=== PATIENT | female | born 1975 | race Caucasian/White ===

== ENCOUNTER 2023-08-19 05:24 | Inpatient (IN) ==
[2023-08-19] MEDS ORDERED: IOPAMIDOL 100 ML BOTTLE IV ONE (05:25)
[2023-08-19] MEDS: 0.9 % SODIUM CHLORIDE 1,000 ML IV ONE ×2 (06:00→08:42)
[2023-08-19] MEDS: ONDANSETRON 4 MG/2 ML VIAL IV ONE ×2 (06:00→07:34)
[2023-08-19] MEDS: KETOROLAC 15 MG/ML VIAL IV ONE (06:00)
[2023-08-19 06:12] LABS: Basophils # (Auto) 0.01 K/mcL (0.00-0.30); Basophils % (Auto) 0.3 % (0.0-2.0); Eosinophils # (Auto) 0.03 K/mcL (0.00-0.70); Eosinophils % (Auto) 0.8 % (0.0-7.0); Hematocrit 42.9 % (34.1-44.9); Hemoglobin 14.2 g/dL (11.2-15.7); Lymphocytes # (Auto) 0.54 K/mcL (1.50-4.80); Lymphocytes % (Auto) 14.7 % (15.5-49.0); Mean Cell Volume 93.1 fL (80.0-100.0); Mean Corpuscular HGB Conc 33.1 g/dL (31.0-36.0); Mean Platelet Volume 9.9 fL (8.8-12.5); Monocytes # (Auto) 0.02 K/mcL (0.10-0.90); Monocytes % (Auto) 0.5 % (1.0-12.0); Neutrophils % (Auto) 83.7 % (38.0-78.0); Platelet Count 298 K/mcL (140-440); RBC 4.61 M/mcL (3.59-5.38); Red Cell Distribution Width 13.5 % (11.5-14.5); WBC 3.7 K/mcL (4.5-11.0)
[2023-08-19 06:18] LABS: HCG,Serum Negative
[2023-08-19 06:36] LABS: ALT/SGPT 11 U/L (<40); AST/SGOT 20 U/L (<32); Albumin 4.2 gm/dL (3.2-5.2); Albumin/Globulin Ratio 1.7 (1.0-2.3); Alkaline Phosphatase 66 U/L (39-117); Bilirubin,Total 0.8 mg/dL (0.1-1.0); Blood Urea Nitrogen 21 mg/dL (6-20); Calcium 9.1 mg/dL (8.6-10.4); Carbon Dioxide 23 mmol/L (22-30); Chloride 104 mmol/L (96-108); Globulin 2.5 gm/dL (2.2-3.7); Glomerular Filtration Rate 77; Glucose 69 mg/dL (70-105)
[2023-08-19 07:37] LABS: Appearance,Urine Cloudy (Clear); Bacteria,Urine Many /hpf (0); Bilirubin,Urine Negative (Negative); Color,Urine Yellow; Culture Indicated,Urine No; Glucose,Urine (UA) Negative (Negative); Ketones,Urine Trace mg/dL (Negative); Leukocyte Esterase,Urine Large /uL (Negative); Mucus,Urine Few /hpf; Nitrate,Urine Positive (Negative); Protein,Urine 100 mg/dL (Negative); Urine Blood Large ery/mcL (Negative); Urine RBC > 182 /hpf (0-1); Urine Squamous Epithelial Cell 8 /hpf (0-4); Urine WBC > 182 /hpf (0-4); Urobilinogen,Urine Normal
[2023-08-19] MEDS: CEFDINIR 300 MG CAPSULE PO ONE (08:40)
[2023-08-19] MEDS: cefTRIAXone 2 GM in DEXTROSE 5% IN WATER 50 ML IV ONE (08:47)
[2023-08-19] MEDS: VANCOMYCIN PER PHARMACY IV ONE (09:46)
[2023-08-19] MEDS: 0.9 % SODIUM CHLORIDE 500 ML IV ONE (09:55)
[2023-08-19] MEDS: VANCOMYCIN 1,000 MG in 0.9 % SODIUM CHLORIDE 250 ML IV SCH ×2 (09:55→22:19)
[2023-08-19] MEDS: NOREPINEPHRINE BITARTRATE 8 MG in 0.9 % SODIUM CHLORIDE 242 ML IV SCH (10:50)
[2023-08-19] MEDS: fentaNYL 100 MCG/2 ML VIAL IV ONE (11:00)
[2023-08-19] MEDS: 0.9 % SODIUM CHLORIDE 250 ML IV SCH ×2 (11:42→19:56)
[2023-08-19] MEDS: LORazepam 2 MG/ML VIAL IV ONE (12:40)
[2023-08-19] MEDS: predniSONE 10 MG TABLET PO ONE (14:32)
[2023-08-19 15:07] LABS: C-Reactive Protein 2.42 mg/dL (0.03-0.80)
[2023-08-19] MEDS: LACTATED RINGERS 1,000 ML IV ONE (15:42)
[2023-08-19] MEDS: CEFEPIME 2 GM VIAL IV ONE (15:42)
[2023-08-19] MEDS: CEFEPIME 2 GM VIAL IV SCH (15:43)
[2023-08-19] MEDS ORDERED: VANCOMYCIN PER PHARMACY IV SCH (15:51)
[2023-08-19] MEDS: predniSONE 20 MG TABLET PO SCH (16:02)
[2023-08-19] MEDS: ACETAMINOPHEN 1,000 MG/100 ML BAG IV ONE (16:03)
[2023-08-19] MEDS: HYDROcodone/APAP 10/325MG TABLET PO ONE (16:03)
[2023-08-19] MEDS: HYDROcodone/APAP 5/325MG TABLET PO ONE (16:03)
[2023-08-19 16:22] LABS: Blood Urea Nitrogen 19 mg/dL (6-20); Calcium 7.5 mg/dL (8.6-10.4); Carbon Dioxide 21 mmol/L (22-30); Chloride 109 mmol/L (96-108); Glomerular Filtration Rate 67; Glucose 70 mg/dL (70-105)
[2023-08-19] MEDS ORDERED: ONDANSETRON 4 MG/2 ML VIAL IV PRN (16:43)
[2023-08-19] MEDS: LACTATED RINGERS 1,000 ML IV SCH (17:23)
[2023-08-19] MEDS: OSELTAMIVIR PHOSPHATE 75 MG CAPSULE PO SCH (20:43)
[2023-08-19] MEDS: HYDROcodone/APAP 10/325MG TABLET PO PRN (20:43)
[2023-08-19] MEDS: FAMOTIDINE 20 MG TABLET PO SCH (20:43)
[2023-08-19] MEDS: 0.9 % SODIUM CHLORIDE 10 ML SYRINGE IV SCH (20:45)
[2023-08-19] MEDS: DOCUSATE SODIUM 100 MG CAPSULE PO SCH (22:19)
[2023-08-20 05:55] LABS: Basophils # (Auto) 0 K/mcL (0.00-0.30); Basophils % (Auto) 0 % (0.0-2.0); Eosinophils # (Auto) 0 K/mcL (0.00-0.70); Eosinophils % (Auto) 0 % (0.0-7.0); Hemoglobin 11.9 g/dL (11.2-15.7); Lymphocytes # (Auto) 0.32 K/mcL (1.50-4.80); Lymphocytes % (Auto) 1.4 % (15.5-49.0); Mean Corpuscular HGB Conc 33.1 g/dL (31.0-36.0); Mean Platelet Volume 9.7 fL (8.8-12.5); Monocytes # (Auto) 0.46 K/mcL (0.10-0.90); Neutrophils % (Auto) 95.1 % (38.0-78.0); Platelet Count 224 K/mcL (140-440); RBC 3.79 M/mcL (3.59-5.38); Red Cell Distribution Width 14.3 % (11.5-14.5)
[2023-08-20 06:18] LABS: ALT/SGPT 17 U/L (<40); AST/SGOT 28 U/L (<32); Albumin 2.7 gm/dL (3.2-5.2); Albumin/Globulin Ratio 1.4 (1.0-2.3); Alkaline Phosphatase 48 U/L (39-117); Bilirubin,Total 0.2 mg/dL (0.1-1.0); Blood Urea Nitrogen 13 mg/dL (6-20); Calcium 7.9 mg/dL (8.6-10.4); Carbon Dioxide 24 mmol/L (22-30); Chloride 110 mmol/L (96-108); Glomerular Filtration Rate 88; Glucose 95 mg/dL (70-105)
[2023-08-20] MEDS ORDERED: predniSONE 20 MG TABLET PO SCH (08:00)
[2023-08-20 08:13] LABS: WBC 22.9 K/mcL (4.5-11.0)
[2023-08-20] MEDS: predniSONE 20 MG TABLET PO SCH (08:34)
[2023-08-20] MEDS: ENOXAPARIN 40 MG/0.4 ML SYRINGE SQ SCH (08:35)
[2023-08-20] MEDS: DOXYCYCLINE 100 MG in DEXTROSE 5% IN WATER 100 ML IV SCH (16:12)
[2023-08-20] MEDS: NAPROXEN 250 MG TABLET PO PRN (18:31)
[2023-08-21 06:18] LABS: ALT/SGPT 21 U/L (<40); AST/SGOT 27 U/L (<32); Albumin 2.5 gm/dL (3.2-5.2); Albumin/Globulin Ratio 1.1 (1.0-2.3); Alkaline Phosphatase 59 U/L (39-117); Bilirubin,Total < 0.2 mg/dL (0.1-1.0); Blood Urea Nitrogen 16 mg/dL (6-20); Calcium 8.3 mg/dL (8.6-10.4); Carbon Dioxide 25 mmol/L (22-30); Chloride 111 mmol/L (96-108); Globulin 2.2 gm/dL (2.2-3.7); Glomerular Filtration Rate 88; Glucose 106 mg/dL (70-105)
[2023-08-21] MEDS: predniSONE 20 MG TABLET PO SCH (08:18)
[2023-08-21 08:57] LABS: Basophils # (Auto) 0.05 K/mcL (0.00-0.30); Basophils % (Auto) 0.3 % (0.0-2.0); Eosinophils # (Auto) 0.15 K/mcL (0.00-0.70); Eosinophils % (Auto) 0.8 % (0.0-7.0); Hematocrit 34.5 % (34.1-44.9); Hemoglobin 11.2 g/dL (11.2-15.7); Lymphocytes # (Auto) 0.93 K/mcL (1.50-4.80); Lymphocytes % (Auto) 4.9 % (15.5-49.0); Mean Corpuscular HGB Conc 32.5 g/dL (31.0-36.0); Mean Platelet Volume 11.1 fL (8.8-12.5); Monocytes # (Auto) 0.76 K/mcL (0.10-0.90); Neutrophils % (Auto) 87.2 % (38.0-78.0); Platelet Count 168 K/mcL (140-440); RBC 3.63 M/mcL (3.59-5.38); Red Cell Distribution Width 14.7 % (11.5-14.5)
[2023-08-21 09:23] LABS: WBC 19.1 K/mcL (4.5-11.0)
[2023-08-21] MEDS ORDERED: NOREPINEPHRINE BITARTRATE 8 MG in 0.9 % SODIUM CHLORIDE 242 ML IV PRN (09:57)
[2023-08-21] MEDS: ACETAMINOPHEN 325 MG TABLET PO PRN (10:14)
[2023-08-21] MEDS: LOSARTAN 25 MG TABLET PO ONE (22:05)
[2023-08-22 06:33] LABS: Basophils # (Auto) 0.01 K/mcL (0.00-0.30); Basophils % (Auto) 0.1 % (0.0-2.0); Eosinophils # (Auto) 0.05 K/mcL (0.00-0.70); Eosinophils % (Auto) 0.4 % (0.0-7.0); Hematocrit 35.7 % (34.1-44.9); Hemoglobin 11.7 g/dL (11.2-15.7); Lymphocytes % (Auto) 5.7 % (15.5-49.0); Mean Cell Volume 95.7 fL (80.0-100.0); Mean Corpuscular HGB Conc 32.8 g/dL (31.0-36.0); Mean Platelet Volume 11.7 fL (8.8-12.5); Monocytes # (Auto) 0.64 K/mcL (0.10-0.90); Monocytes % (Auto) 4.5 % (1.0-12.0); Neutrophils % (Auto) 88.1 % (38.0-78.0); Platelet Count 173 K/mcL (140-440); RBC 3.73 M/mcL (3.59-5.38); Red Cell Distribution Width 14.3 % (11.5-14.5); WBC 14.1 K/mcL (4.5-11.0)
[2023-08-22 06:58] LABS: ALT/SGPT 40 U/L (<40); AST/SGOT 34 U/L (<32); Albumin 2.9 gm/dL (3.2-5.2); Albumin/Globulin Ratio 1.2 (1.0-2.3); Alkaline Phosphatase 83 U/L (39-117); Bilirubin,Total < 0.2 mg/dL (0.1-1.0); Blood Urea Nitrogen 10 mg/dL (6-20); Calcium 9.2 mg/dL (8.6-10.4); Carbon Dioxide 30 mmol/L (22-30); Chloride 105 mmol/L (96-108); Globulin 2.5 gm/dL (2.2-3.7); Glomerular Filtration Rate 109; Glucose 90 mg/dL (70-105)
[2023-08-22] MEDS: POTASSIUM CHLORIDE 20 MEQ TABLET PO ONE (08:17)
[2023-08-22] MEDS: LOSARTAN 25 MG TABLET PO SCH (08:17)
[2023-08-23 06:19] LABS: Basophils # (Auto) 0 K/mcL (0.00-0.30); Basophils % (Auto) 0 % (0.0-2.0); Eosinophils % (Auto) 1.4 % (0.0-7.0); Hematocrit 37.4 % (34.1-44.9); Hemoglobin 12.3 g/dL (11.2-15.7); Lymphocytes # (Auto) 1.13 K/mcL (1.50-4.80); Lymphocytes % (Auto) 15.4 % (15.5-49.0); Mean Cell Volume 94.2 fL (80.0-100.0); Mean Corpuscular HGB Conc 32.9 g/dL (31.0-36.0); Mean Platelet Volume 10.6 fL (8.8-12.5); Monocytes # (Auto) 0.62 K/mcL (0.10-0.90); Monocytes % (Auto) 8.4 % (1.0-12.0); Platelet Count 208 K/mcL (140-440); RBC 3.97 M/mcL (3.59-5.38); WBC 7.4 K/mcL (4.5-11.0)
[2023-08-23 06:38] LABS: ALT/SGPT 24 U/L (<40); AST/SGOT 21 U/L (<32); Albumin 3.2 gm/dL (3.2-5.2); Albumin/Globulin Ratio 1.3 (1.0-2.3); Alkaline Phosphatase 74 U/L (39-117); Bilirubin,Total 0.2 mg/dL (0.1-1.0); Blood Urea Nitrogen 11 mg/dL (6-20); C-Reactive Protein 6.38 mg/dL (0.03-0.80); Carbon Dioxide 31 mmol/L (22-30); Chloride 99 mmol/L (96-108); Globulin 2.5 gm/dL (2.2-3.7); Glomerular Filtration Rate 116; Glucose 83 mg/dL (70-105)
[2023-08-23] MEDS: predniSONE 20 MG TABLET PO SCH (08:46)
[2023-08-23] MEDS: POTASSIUM CHLORIDE 20 MEQ TABLET PO ONE (11:22)
[2023-08-23] MEDS: CIPROFLOXACIN 500 MG TABLET PO SCH (11:23)
[2023-08-23] MEDS: DOXYCYCLINE HYCLATE 100 MG TABLET.ORL PO SCH (20:19)
[2023-08-24 06:36] LABS: Basophils # (Auto) 0.01 K/mcL (0.00-0.30); Basophils % (Auto) 0.1 % (0.0-2.0); Eosinophils # (Auto) 0.17 K/mcL (0.00-0.70); Eosinophils % (Auto) 1.7 % (0.0-7.0); Hematocrit 40.5 % (34.1-44.9); Hemoglobin 13.2 g/dL (11.2-15.7); Lymphocytes # (Auto) 1.62 K/mcL (1.50-4.80); Lymphocytes % (Auto) 16.6 % (15.5-49.0); Mean Cell Volume 94.2 fL (80.0-100.0); Mean Corpuscular HGB Conc 32.6 g/dL (31.0-36.0); Mean Platelet Volume 10.3 fL (8.8-12.5); Monocytes # (Auto) 1.07 K/mcL (0.10-0.90); Platelet Count 256 K/mcL (140-440); Red Cell Distribution Width 13.8 % (11.5-14.5); WBC 9.7 K/mcL (4.5-11.0)
[2023-08-24 07:09] LABS: C-Reactive Protein 4.46 mg/dL (0.03-0.80)
[2023-08-24 07:21] LABS: ALT/SGPT 18 U/L (<40); AST/SGOT 21 U/L (<32); Albumin 3.2 gm/dL (3.2-5.2); Albumin/Globulin Ratio 1.2 (1.0-2.3); Alkaline Phosphatase 73 U/L (39-117); Bilirubin,Total < 0.2 mg/dL (0.1-1.0); Blood Urea Nitrogen 14 mg/dL (6-20); Calcium 9.4 mg/dL (8.6-10.4); Carbon Dioxide 31 mmol/L (22-30); Chloride 101 mmol/L (96-108); Globulin 2.7 gm/dL (2.2-3.7); Glomerular Filtration Rate 109; Glucose 78 mg/dL (70-105)
[2023-08-24] MEDS: PNEUMOCOCCAL 23-VAL P-SAC VAC 0.5 ML SYRINGE IM ONE (10:37)
== END 2023-08-24 10:55 | disposition home or self-care (01) | DRG 871 ==
LOC: ED 05:24 → ICU 16:40